=== PATIENT | male | born 1980 | race Caucasian/White ===

== ENCOUNTER 2019-05-02 06:01 | Day surgery (SDC) | payer BC ==
[~2019-05-02 06:01] MED LIST: Dextrose 5%-0.45% NaCl 1,000 ML IV SCH; Sodium Chloride 0.9% 10 ML Syringe FLUSH PRN
[2019-05-02] MEDS ORDERED: Midazolam 1 MG/ML 2 ML SDV IV ONE ×6 (06:02→07:30)
[2019-05-02] MEDS ORDERED: fentaNYL 100 MCG/2 ML SDV IV ONE ×3 (06:02→07:20)
[2019-05-02] MEDS ORDERED: Midazolam 1 MG/ML 2 ML SDV ONE (06:16)
[2019-05-02] MEDS ORDERED: fentaNYL 100 MCG/2 ML SDV ONE (06:16)
[2019-05-02 07:55] VITALS: BP 155/79; PULSE 91
--- NOTE | 2019-05-02 15:22 | OR ---
DATE: 05/02/2019 PROCEDURES: Total colonoscopy, narrow-band imaging, and multiple pinch biopsies. INSTRUMENT USED: CF-GF704T Olympus video colonoscope. PREMEDICATIONS: Fentanyl 100 mcg intravenous, Versed 4 mg intravenous, nasal O2 cannula. The procedure was done under pulse oximetry, BP recording, and warehouse loader. INDICATION: The patient with chronic diarrhea, rectal bleeding, and iron- deficiency anemia. Colonoscopic examination is done for detection of any polypoid lesions and removal, biopsies to be obtained for microscopic colitis, endoscopic hemostasis therapy if needed. DESCRIPTION OF PROCEDURE: Initial rectal exam was unremarkable. Rigid anoscopy showed distal rectal mucosa with erythema, contact bleeding, and ulcerations. The scope was passed with ease up to the ileocecal area. Photographs were taken of the rectum, descending colon, transverse colon, as well as cecal area showing friability, contact bleeding, ulcerations, and pseudopolyps in the right colon, features consistent with ulcerative colitis. No bleeding was noted from any of the visualized areas at the commencement of the examination. The bowel preparation was found to be adequate, Olympia scale 2 in all the regions. No stricture. No vascular ectasia. No large isolated ulcerations seen. No polyp or tumor mass identified. Probing the proximal sides of folds and flexures using adequate distention and clearing up the stool material, withdrawal of the scope was made. Multiple pinch biopsies were obtained from the cecum, mid transverse colon, mid descending colon, and rectosigmoid, and sent for any evidence of microscopic colitis. No bleeding was noted from any of the visualized areas at the completion of examination. IMPRESSION: Ulcerative colitis. The patient tolerated the procedure well. [facility] /[id number]
== END 2019-05-02 09:42 | disposition home or self-care (01) ==
LOC: DL.ENDO 06:01
PROVIDERS: ATTEND Internal Medicine Gastroenterology
DX: K51.911 Ulcerative colitis, unspecified with rectal bleeding (principal); K52.9 Noninfective gastroenteritis and colitis, unspecified; K62.5 Hemorrhage of anus and rectum; D50.9 Iron deficiency anemia, unspecified; E66.01 Morbid (severe) obesity due to excess calories; Z68.43 Body mass index [BMI] 50.0-59.9, adult
CPT/HCPCS: 45380; J2250; J3010; J7042

== ENCOUNTER 2019-08-28 10:29 | Inpatient (IN) | payer BC ==
--- NOTE | 2019-08-28 10:59 | EDM.PDOC ---
ED HPI GENERAL MEDICAL PROBLEM - General Chief Complaint: Lower Extremity Injury/Pain Stated Complaint: ? Time Seen by Provider: 08/28/19 10:45 Source of Information: Reports: Patient, Provider History Limitations: Reports: No Limitations - History of Present Illness INITIAL COMMENTS - FREE TEXT/NARRATIVE: This 39 yo male patient was sent to the ED due to swelling and redness of his left lower extremity. The patient was seen today in the clinic by Dr. Fuller after being on antibiotics (Bactrim) for the past 4 days with worsening of his erythema. The provider suggested the patient have an ultrasound of his left lower extremity looking for evidence of a blood clot. If the patient does not have a blood clot, the patient may require IV antibiotics and hospitalization for treatment. The patient has a medical history of morbid obesity, ulcerative colitis and cellulitis. The patient has been on Prednisone and Candace for his UC , but may need to switch to Intevia due to insufficient response to the above treatment. The patient initially questioned nursing staff about why the ultrasound test was not ordered by Dr. Fuller. The patient was not given an explanation, but was advised that the appropriate testing would be ordered through the ED. Onset Date: 08/25/19 Duration: Constant, Getting Worse Location: Reports: Lower Extremity, Left Quality: Reports: Ache, Dull, Pressure Severity: Moderate Improves with: Reports: None Worsens with: Reports: None Context: Reports: Other Associated Symptoms: Reports: No Other Symptoms Treatments EMBEDDED ENGINEER: Reports: Other Medication(s) (Bactrim (prescribed on 08/25/19)) Left Lower Leg Pain Score (Numeric/FACES): 7 - Related Data Allergies Allergy/AdvReac Type Severity Reaction Status Date / Time No Known Allergies Allergy Verified 08/28/19 10:37 Home Meds: Home Meds Potassium Chloride [Klor-Con M10] 20 meq PO BID 05/02/19 [History] Adalimumab [Humira] 40 mg SQ .EVERYOTHERWEEK 08/28/19 [History] Ascorbate Calcium [Vitamin C] 500 mg PO DAILY 08/28/19 [History] Famotidine [Pepcid] 20 mg PO DAILY 08/28/19 [History] Ferrous Sulfate 325 mg PO BID 08/28/19 [History] Folic Acid 1 mg PO DAILY 08/28/19 [History] Methotrexate 10 mg PO Q7D 08/28/19 [History] Mupirocin Oint [Bactroban Oint] 1 applic TOP BID 08/28/19 [History] Sulfamethoxazole/Trimethoprim [Bactrim 400-80 MG] 1 each PO BID 08/28/19 [ History] predniSONE [Prednisone] 40 mg PO DAILY 08/28/19 [History] Past Medical History - Past Health History Medical/Surgical History: Denies Medical/Surgical History HEENT History: Reports: Impaired Vision Cardiovascular History: Reports: None Respiratory History: Reports: None Gastrointestinal History: Reports: Chronic Diarrhea, Other (See Below) Other Gastrointestinal History: ulcerative colitis Genitourinary History: Reports: None Musculoskeletal History: Reports: Arthritis Neurological History: Reports: Migraines Psychiatric History: Reports: None Endocrine/Metabolic History: Reports: Obesity/BMI 30+ Other Endocrine/Metabolic History: HX OF THYRIOD ENLARGEMENT Hematologic History: Reports: None Immunologic History: Reports: None Oncologic (Cancer) History: Reports: None Dermatologic History: Reports: Cellulitis - Infectious Disease History Infectious Disease History: Reports: Chicken Pox - Past Surgical History Head Surgeries/Procedures: Reports: None HEENT Surgical History: Reports: None Cardiovascular Surgical History: Reports: None Respiratory Surgical History: Reports: None GI Surgical History: Reports: None Male Surgical History: Reports: Vasectomy Endocrine Surgical History: Reports: None Neurological Surgical History: Reports: None Musculoskeletal Surgical History: Reports: None Oncologic Surgical History: Reports: None Dermatological Surgical History: Reports: None Social & Family History - Tobacco Use Smoking Status *Q: Never Smoker Second Hand Smoke Exposure: No - Caffeine Use Caffeine Use: Reports: Energy Drinks, Soda Other Caffeine Use: ENERGY DRINKS 'EVERY NOW AND THEN'. SODA POP 'I HAVEN'T HAD ANY FOR A MONTH' - Recreational Drug Use Recreational Drug Use: No Review of Systems - Review of Systems Review Of Systems: Comprehensive ROS is negative, except as noted in HPI. ED EXAM, GENERAL - Physical Exam Exam: See Below Exam Limited By: No Limitations General Appearance: Alert, WD/WN, Mild Distress, Obese Eye Exam: Bilateral Eye: EOMI, Normal Inspection, PERRL Ears: Normal External Exam, Normal Canal, Hearing Grossly Normal, Normal TMs Nose: Normal Inspection, Normal Mucosa, No Blood Throat/Mouth: Normal Inspection, Normal Lips, Normal Teeth, Normal Gums, Normal Oropharynx, Normal Voice, No Airway Compromise Head: Atraumatic, Normocephalic Neck: Normal Inspection, Supple, Non-Tender, Full Range of Motion Respiratory/Chest: No Respiratory Distress, Lungs Clear, Normal Breath Sounds, No Accessory Muscle Use, Chest Non-Tender Cardiovascular: Normal Peripheral Pulses, Regular Rate, Rhythm, No Edema, No Gallop, No JVD, No Murmur, No Rub, Other (There were several irrgular beats. Dr. Fuller did do an EKG revealing several PAC's as reported by Dr. Fuller. ) GI/Abdominal: Normal Bowel Sounds, Soft, Non-Tender, No Organomegaly, No Distention, No Abnormal Bruit, No Mass, Other (obese) (Male) Exam: Deferred Rectal (Males) Exam: Deferred Back Exam: Normal Inspection, Full Range of Motion, NT Extremities: Pedal Edema, Leg Pain (erythema left lower extremity), Increased Warmth Neurological: Alert, Oriented, CN II-XII Intact, Normal Cognition, Normal Reflexes, No Motor/Sensory Deficits Psychiatric: Normal Affect, Normal Mood Skin Exam: Erythema (LLE) Lymphatic: No Adenopathy Course - Vital Signs Last Recorded V/S: Last Vital Signs Temp 36.6 C 08/28/19 10:32 Pulse 96 08/28/19 10:32 Resp 18 08/28/19 10:32 BP 144/88 H 08/28/19 10:32 Pulse Ox 100 08/28/19 10:32 - Orders/Labs/Meds Orders: Active Orders 24 hr Category Date Time Status Admission Diagnosis [ADT] Urgent ADT 08/28/19 13:21 Ordered Admission Status [Patient Status] [ADT] Routine ADT 08/28/19 13:21 Ordered CULTURE BLOOD [BC] Stat Lab 08/28/19 13:20 Ordered CULTURE BLOOD [BC] Stat Lab 08/28/19 13:20 Ordered Piperacillin/Tazobactam [Zosyn] 3.375 gm Med 08/28/19 13:20 Ordered Sodium Chloride 0.9% [Normal Saline] 100 ml IV ONETIME Blood Culture x2 Reflex Set [OM.PC] Stat Oth 08/28/19 13:20 Ordered Medication Orders Piperacillin Sod/Tazobactam (Sod 3.375 gm/ Sodium Chloride) 100 mls @ 200 mls/ hr IV ONETIME ONE Stop: 08/28/19 13:49 Meds: Medications Generic Name Dose Route Start Last Admin Trade Name Sera PRN Reason Stop Dose Admin Piperacillin Sod/Tazobactam 100 mls @ 200 mls/hr 08/28/19 13:20 Sod 3.375 gm/ Sodium Chloride IV 08/28/19 13:49 ONETIME ONE Departure - Departure Time of Disposition: 13:23 Disposition: Admitted As Inpatient 65 Condition: Fair Clinical Impression: Cellulitis of left lower extremity - Discharge Information *PRESCRIPTION DRUG MONITORING PROGRAM REVIEWED*: Not Applicable *COPY OF PRESCRIPTION DRUG MONITORING REPORT IN PATIENT RIKY: Not Applicable Care Plan Goals: Discussed the patient's history, examination, [facility] lab results and ultrasound results with Dr. Segura. Dr. Segura accepted the patient for continued evaluation and management as an inpatient at [facility]. Sepsis Event Note - Evaluation Sepsis Screening Result: No Definite Risk - Focused Exam Vital Signs: Vital Signs Temp Pulse Resp BP Pulse Ox 08/28/19 10:32 36.6 C 96 18 144/88 H 100 Date Exam was Performed: 08/28/19 Time Exam was Performed: 13:22 - My Orders Last 24 Hours: My Active Orders 08/28/19 13:20 CULTURE BLOOD [BC] Stat CULTURE BLOOD [BC] Stat Piperacillin/Tazobactam [Zosyn] 3.375 gm Sodium Chloride 0.9% [Normal Saline] 100 ml IV ONETIME Blood Culture x2 Reflex Set [OM.PC] Stat 08/28/19 13:21 Admission Diagnosis [ADT] Urgent Admission Status [Patient Status] [ADT] Routine - Assessment/Plan Last 24 Hours: My Active Orders 08/28/19 13:20 CULTURE BLOOD [BC] Stat CULTURE BLOOD [BC] Stat Piperacillin/Tazobactam [Zosyn] 3.375 gm Sodium Chloride 0.9% [Normal Saline] 100 ml IV ONETIME Blood Culture x2 Reflex Set [OM.PC] Stat 08/28/19 13:21 Admission Diagnosis [ADT] Urgent Admission Status [Patient Status] [ADT] Routine
[2019-08-28] MEDS ORDERED: Lidocaine/EPINEPHrine/Tetracaine Soln 5 ML Each TOP ONE (13:04)
[2019-08-28] MEDS ORDERED: Lidocaine 1% with EPINEPHrine 1:100,000 20 ML MDV INJECT ONE (13:04)
[2019-08-28] MEDS ORDERED: Piperacillin/Tazobactam 3.375 GM in Sodium Chloride 0.9% 100 ML IV ONE (13:20)
[2019-08-28] MEDS ORDERED: Ibuprofen 600 MG Tab PO PRN (14:14)
[2019-08-28] MEDS ORDERED: Ondansetron 4 MG Tab.DIS PO PRN (14:14)
[2019-08-28] MEDS ORDERED: Glucagon,Human Recombinant 1 MG Vial IM PRN (14:14)
[2019-08-28] MEDS ORDERED: Acetaminophen 325 MG Tab PO PRN (14:14)
[2019-08-28] MEDS ORDERED: 50% Dextrose in Water 50 ML Syringe IVPUSH PRN (14:14)
[2019-08-28] MEDS ORDERED: Ondansetron 4 MG/2 ML SDV IVPUSH PRN (14:14)
--- NOTE | 2019-08-28 15:07 | PCM.HP ---
H&P History of Present Illness - General Date of Service: 08/28/19 Admit Problem/Dx: Admission Diagnosis/Problem Admission Diagnosis/Problem Cellulitis Source of Information: Patient, Old Records, Provider History Limitations: Reports: No Limitations - History of Present Illness Initial Comments - Free Text/Narative: Patient is a 39-year-old male with medical history significant for ulcerative colitis, iron deficiency anemia, goiter, recurrent cellulitis, sinusitis, and morbid obesity who was sent to the ED from clinic for concern for DVT of the left lower extremity. Patient reports that he scratched the anterior left lower leg about a week ago. States that he does not recall how he sustained the injury to the lower leg. Reports that since last Sunday, he started having redness of the lower extremity that slowly progressed. States that he was seen in clinic and was started on Bactrim. Reports that redness has persisted and continued to progress. Denies any discharge from the lower extremity. Reports left lower extremity is swollen compared to baseline. Reports that he has been having shortness of breath and nonproductive cough since March. States that he has been told that this is likely related to his anemia and has received 2 iron transfusions for this. Reports chronic diarrhea with intermittent episodes of hematochezia. Denies chest pain, fevers, chills, nausea, vomiting, urea, hematuria, or any other symptoms. Reports that he has not had any recent sick contacts. States that he has been diligent in maintaining social isolation. The clinic today, patient's WBC count was 8.28 with hemoglobin of 9.7 and platelet count of 246. LFTs were fairly normal except for low albumin. CRP was 2.7, decreased from 3.4 on 08/14/2019. The ED, ultrasound of the lower extremity was negative for DVT. Patient is being admitted for IV antibiotics due to failed outpatient treatment with oral antibiotics. Left Lower Leg Pain Score (Numeric/FACES): 7 - Related Data Allergies/Adverse Reactions: Allergies Allergy/AdvReac Type Severity Reaction Status Date / Time No Known Allergies Allergy Verified 08/28/19 10:37 Home Medications: Home Meds Potassium Chloride [Klor-Con M10] 20 meq PO BID 05/02/19 [History] Adalimumab [Humira] 40 mg SQ .EVERYOTHERWEEK 08/28/19 [History] Ascorbate Calcium [Vitamin C] 500 mg PO DAILY 08/28/19 [History] Famotidine [Pepcid] 20 mg PO DAILY 08/28/19 [History] Ferrous Sulfate 325 mg PO BID 08/28/19 [History] Folic Acid 1 mg PO DAILY 08/28/19 [History] Methotrexate 10 mg PO Q7D 08/28/19 [History] Mupirocin Oint [Bactroban Oint] 1 applic TOP BID 08/28/19 [History] Sulfamethoxazole/Trimethoprim [Bactrim 400-80 MG] 1 each PO BID 08/28/19 [ History] predniSONE [Prednisone] 40 mg PO DAILY 08/28/19 [History] Past Medical History - Past Health History Medical/Surgical History: Denies Medical/Surgical History HEENT History: Reports: Impaired Vision Cardiovascular History: Reports: None Respiratory History: Reports: None Gastrointestinal History: Reports: Chronic Diarrhea, Other (See Below) Other Gastrointestinal History: ulcerative colitis Genitourinary History: Reports: None Musculoskeletal History: Reports: Arthritis Neurological History: Reports: Migraines Psychiatric History: Reports: None Endocrine/Metabolic History: Reports: Obesity/BMI 30+ Other Endocrine/Metabolic History: HX OF THYRIOD ENLARGEMENT Hematologic History: Reports: None Immunologic History: Reports: None Oncologic (Cancer) History: Reports: None Dermatologic History: Reports: Cellulitis - Infectious Disease History Infectious Disease History: Reports: Chicken Pox - Past Surgical History Head Surgeries/Procedures: Reports: None HEENT Surgical History: Reports: None Cardiovascular Surgical History: Reports: None Respiratory Surgical History: Reports: None GI Surgical History: Reports: None Male Surgical History: Reports: Vasectomy Endocrine Surgical History: Reports: None Neurological Surgical History: Reports: None Musculoskeletal Surgical History: Reports: None Oncologic Surgical History: Reports: None Dermatological Surgical History: Reports: None Social & Family History - Tobacco Use Smoking Status *Q: Never Smoker Second Hand Smoke Exposure: No - Caffeine Use Caffeine Use: Reports: Energy Drinks, Soda Other Caffeine Use: ENERGY DRINKS 'EVERY NOW AND THEN'. SODA POP 'I HAVEN'T HAD ANY FOR A MONTH' - Recreational Drug Use Recreational Drug Use: No H&P Review of Systems - Review of Systems: Review Of Systems: Comprehensive ROS is negative, except as noted in HPI. Exam - Exam Exam: See Below - Vital Signs Vital Signs: Last Vital Signs Temp 98 F 08/28/19 10:32 Pulse 96 08/28/19 10:32 Resp 18 08/28/19 10:32 BP 144/88 H 08/28/19 10:32 Pulse Ox 100 08/28/19 10:32 Weight: 468 lb - Exam General: Alert, Oriented HEENT: Conjunctiva Clear, Hearing Intact, Mucosa Moist & [place] Neck: Supple, Trachea Midline Lungs: Clear to Auscultation, Normal Respiratory Effort Cardiovascular: Regular Rate, Regular Rhythm GI/Abdominal Exam: Normal Bowel Sounds, Non-Tender, No Distention Extremities: Pedal Edema (3+ pitting edema of the left lower extremity with superimposed cellulitis extending from the ankle to about an inch below the knee. About 3 cm linear healing scratch on the left cabrera. Lympedema of the right lower extremity.) Skin: Other (3+ pitting edema of the left lower extremity with superimposed cellulitis extending from the ankle to about an inch below the knee. About 3 cm linear healing scratch on the left cabrera. ) Neuro Extensive - Mental Status: Alert, Oriented x3, Normal Mood/Affect, Normal Cognition Psychiatric: Alert, Normal Affect, Normal Mood - Patient Data Simon Results Last 24 hrs: Microbiology 08/28/19 13:32 Anaerobic Blood Culture - Final Blood - Venous - Lab Draw 08/28/19 13:32 Anaerobic Blood Culture - Final Blood - Venous - Problem List (1) Obesity due to excess calories SNOMED Code(s): 962383467 ICD Code: E66.09 - OTHER OBESITY DUE TO EXCESS CALORIES Status: Acute Current Visit: Yes (2) Ulcerative colitis SNOMED Code(s): 54299436 ICD Code: K51.90 - ULCERATIVE COLITIS, UNSPECIFIED, WITHOUT COMPLICATIONS Status: Acute Current Visit: Yes (3) Iron deficiency anemia SNOMED Code(s): 48390986 ICD Code: D50.9 - IRON DEFICIENCY ANEMIA, UNSPECIFIED Status: Acute Current Visit: Yes (4) Cellulitis of left lower extremity without foot SNOMED Code(s): 185415956 ICD Code: L03.116 - CELLULITIS OF LEFT LOWER LIMB Status: Acute Current Visit: No Problem List Initiated/Reviewed/Updated: Yes Orders Last 24hrs: Active Orders 24 hr Category Date Time Status Admission Diagnosis [ADT] Urgent ADT 08/28/19 13:21 Ordered Admission Status [Patient Status] [ADT] Routine ADT 08/28/19 13:21 Active Diabetes Education [RC] Click to Edit Care 08/28/19 14:17 Active Height and Weight [RC] UPON Care 08/28/19 14:14 Active Intake and Output [RC] QSHIFT Care 08/28/19 14:20 Active Notify Provider [RC] PRN Care 08/28/19 14:17 Active Oxygen Therapy [RC] PRN Care 08/28/19 14:17 Active Peripheral IV Care [RC] ,21 Care 08/28/19 14:22 Active Up ad Lisa [RC] ASDIRECTED Care 08/28/19 14:14 Active VTE/DVT Education [RC] PER UNIT ROUTINE Care 08/28/19 14:17 Active Vital Signs [RC] 00,04,08,12,16,20 Care 08/28/19 14:17 Active Regular Diet [DIET] Diet 08/28/19 Dinner Active BASIC METABOLIC PANEL,BMP [CHEM] Routine Lab 08/28/19 14:14 Ordered CULTURE BLOOD [BC] Stat Lab 08/28/19 13:32 Results CULTURE BLOOD [BC] Stat Lab 08/28/19 13:32 Results MAGNESIUM [CHEM] Routine Lab 08/28/19 14:14 Ordered PHOSPHORUS [CHEM] Routine Lab 08/28/19 14:14 Ordered Acetaminophen [Tylenol] Med 08/28/19 14:14 Active 650 mg PO Q6H PRN Ascorbic Acid [Vitamin C] Med 08/29/19 09:00 Active 500 mg PO DAILY Dextrose 50% in Water Med 08/28/19 14:14 Active 25 ml IVPUSH ASDIRECTED PRN Docusate Sodium/Sennosides [Senna Plus] Med 08/28/19 14:14 Active 1 tab PO BEDTIME PRN Famotidine [Pepcid] Med 08/29/19 09:00 Active 20 mg PO DAILY Ferrous Sulfate Med 08/28/19 21:00 Active 325 mg PO BID Folic Acid Med 08/29/19 09:00 Active 1 mg PO DAILY Glucagon,Human Recombinant [GlucaGen] Med 08/28/19 14:14 Active 1 mg IM ONETIME PRN Heparin Sodium Med 08/28/19 22:00 Pending 5,000 units SUBCUT Q8HR Ibuprofen [Motrin] Med 08/28/19 14:14 Active 600 mg PO Q6H PRN Mupirocin Oint [Bactroban Oint] Med 08/28/19 21:00 Active 0 gm TOP BID Ondansetron [Zofran ODT] Med 08/28/19 14:14 Active 4 mg PO Q6H PRN Ondansetron [Zofran] Med 08/28/19 14:14 Active 4 mg IVPUSH Q6H PRN Piperacillin/Tazobactam [Zosyn] 3.375 gm Med 08/28/19 20:00 Active Sodium Chloride 0.9% [Normal Saline] 100 ml IV Q6H Potassium Chloride [Klor-Con 10] Med 08/28/19 21:00 Active 20 meq PO BID Sodium Chloride 0.9% [Saline Flush] Med 08/28/19 14:14 Active 10 ml FLUSH ASDIRECTED PRN predniSONE Med 08/29/19 09:00 Active 40 mg PO DAILY Blood Culture x2 Reflex Set [OM.PC] Stat Oth 08/28/19 13:20 Ordered Peripheral IV Insertion Adult [OM.PC] Routine Oth 08/28/19 14:14 Ordered Resuscitation Status Routine Resus Stat 08/28/19 14:14 Ordered Medication Orders Acetaminophen (Tylenol) 650 mg PO Q6H PRN PRN Reason: Pain (Mild 1-3)/fever Ascorbic Acid (Vitamin C) 500 mg PO DAILY [facility] Dextrose/Water (Dextrose 50% In Water) 25 ml IVPUSH ASDIRECTED PRN PRN Reason: Hypoglycemia Famotidine (Pepcid) 20 mg PO DAILY [facility] Ferrous Sulfate (Ferrous Sulfate) 325 mg PO BID [facility] Folic Acid (Folic Acid) 1 mg PO DAILY [facility] Glucagon (Glucagen) 1 mg IM ONETIME PRN PRN Reason: Hypoglycemia Heparin Sodium (Porcine) (Heparin Sodium) 5,000 units SUBCUT Q8HR [facility] Piperacillin Sod/Tazobactam (Sod 3.375 gm/ Sodium Chloride) 100 mls @ 200 mls/ hr IV Q6H [facility] Ibuprofen (Motrin) 600 mg PO Q6H PRN PRN Reason: Pain (mild 1-3) Mupirocin (Bactroban Oint) 0 gm TOP BID [facility] Ondansetron HCl (Zofran Odt) 4 mg PO Q6H PRN PRN Reason: nausea, able to take PO Ondansetron HCl (Zofran) 4 mg IVPUSH Q6H PRN PRN Reason: Nausea/Vomiting Potassium Chloride (Klor-Con 10) 20 meq PO BID [facility] Prednisone (Prednisone) 40 mg PO DAILY [facility] Senna/Docusate Sodium (Senna Plus) 1 tab PO BEDTIME PRN PRN Reason: Constipation Sodium Chloride (Saline Flush) 10 ml FLUSH ASDIRECTED PRN PRN Reason: Keep Vein Open Assessment/Plan Comment:: #Cellulitis of left lower extremity: Failed outpatient antibiotic treatment. Patient reports that he has had about 1 week of redness of the lower left extremity that has been progressively worsening despite being on oral Bactrim and been adherent to medication. Start vancomycin and Zosyn Follow-up on blood cultures Encouraged to elevate lower extremities #Edema of bilateral lower extremities: Worse on the left. IV Lasix Strict I's and O's Encourage ambulation Encourage patient to elevate lower extremities while seated or in bed. #Ulcerative colitis: Follows Dr. Seth giang as outpatient No acute issues On iron deficiency anemia Continue iron supplementation #Morbid obesity: BMI of 60.05 Weight loss counseling DVT prophylaxis: Heparin GI prophylaxis: General diet CODE STATUS: Full code per patient preference.
[2019-08-28 15:42] LABS: ANION GAP 10.5 mEq/L (7-13); CHLORIDE,CL 101 mmol/L (98-107); SODIUM,NA 136 mmol/L (136-145)
[2019-08-28] MEDS: Furosemide 40 MG/4 ML VIAL IVPUSH SCH (15:46)
[2019-08-28] MEDS ORDERED: Piperacillin/Tazobactam 2.25 GM in Sodium Chloride 0.9% 50 ML IV SCH (18:00)
[2019-08-28] MEDS: Piperacillin/Tazobactam 3.375 GM in Sodium Chloride 0.9% 100 ML IV SCH (20:03)
[2019-08-28] MEDS: Mupirocin Oint 22 GM Tube TOP SCH (20:49)
[2019-08-28] MEDS: Phosphorus #1 250 MG Tab PO SCH (20:53)
[2019-08-28] MEDS: Ferrous Sulfate 325 MG Tab PO SCH (20:53)
[2019-08-28] MEDS: Potassium Chloride 10 MEQ Tab.ER PO SCH (20:53)
[2019-08-28] MEDS: Heparin Sodium 5,000 Units/ML Vial SUBCUT SCH ×2 (20:56→22:21)
[2019-08-29] MEDS: Piperacillin/Tazobactam 3.375 GM in Sodium Chloride 0.9% 100 ML IV SCH ×5 (01:34→23:54)
[2019-08-29] MEDS: Heparin Sodium 5,000 Units/ML Vial SUBCUT SCH ×4 (05:36→21:21)
[2019-08-29] MEDS: Furosemide 40 MG/4 ML VIAL IVPUSH SCH (08:03)
[2019-08-29] MEDS: predniSONE 20 MG Tab PO SCH (09:21)
[2019-08-29] MEDS: Folic Acid 1 MG Tab PO SCH (09:22)
[2019-08-29] MEDS: Ascorbic Acid 500 MG Tab PO SCH (09:22)
[2019-08-29] MEDS: Famotidine 20 MG Tab PO SCH (09:22)
[2019-08-29] MEDS: Phosphorus #1 250 MG Tab PO SCH ×3 (09:22→21:23)
[2019-08-29] MEDS: Potassium Chloride 10 MEQ Tab.ER PO SCH ×2 (09:22→18:04)
[2019-08-29] MEDS: Ferrous Sulfate 325 MG Tab PO SCH ×2 (09:22→21:22)
[2019-08-29] MEDS: Mupirocin Oint 22 GM Tube TOP SCH ×2 (09:23→21:20)
[2019-08-29 09:52] LABS: ANION GAP 10.6 mEq/L (7-13); CHLORIDE,CL 100 mmol/L (98-107); SODIUM,NA 137 mmol/L (136-145)
--- NOTE | 2019-08-29 10:07 | PCM.PN ---
- General Info Date of Service: 08/29/19 Admission Dx/Problem (Free Text): Admission Diagnosis/Problem Admission Diagnosis/Problem Cellulitis Subjective Update: No acute events overnight. Reports that redness is slightly improved. States that he has been voiding a lot. Denies chest pains, shortness of breath, fevers , chills, lightheadedness, nausea, vomiting, constipation, dysuria, hematuria, new symptoms. - Patient Data Vitals - Most Recent: Last Vital Signs Temp 98.5 F 08/29/19 08:00 Pulse 90 08/29/19 08:00 Resp 18 08/29/19 08:00 BP 112/61 08/29/19 08:00 Pulse Ox 97 08/29/19 08:00 Weight - Most Recent: 455 lb 6.4 oz I&O - Last 24 Hours: Intake & Output 08/28/19 08/29/19 08/29/19 22:59 06:59 14:59 Intake Total 460 650 860 Balance 460 650 860 Lab Results Last 24 Hours: Laboratory Results - last 24 hr 08/28/19 08/29/19 Range/Units 15:16 09:15 Sodium 136 137 (136-145) mmol/L Potassium 4.5 3.6 (3.5-5.1) mmol/L Chloride 101 100 (98-107) mmol/L Carbon Dioxide 29 30 (21-32) mmol/L Anion Gap 10.5 10.6 (7-13) mEq/L BUN 15 14 (7-18) mg/dL Creatinine 0.92 1.06 (0.70-1.30) mg/dL Est Cr Clr Drug Dosing 124.09 107.70 mL/min Estimated GFR (MDRD) > 60 > 60 Glucose 155 H 120 H (74-99) mg/dL Calcium 8.4 L 8.1 L (8.5-10.1) mg/dL Phosphorus 2.1 L 2.0 L (2.6-4.7) mg/dL Magnesium 2.0 1.9 (1.8-2.4) mg/dL Simon Results Last 24 Hours: Microbiology 08/28/19 13:32 Anaerobic Blood Culture - Final Blood - Venous - Lab Draw 08/28/19 13:32 Anaerobic Blood Culture - Final Blood - Venous Med Orders - Current: Current Medications Acetaminophen (Tylenol) 650 mg PO Q6H PRN PRN Reason: Pain (Mild 1-3)/fever Ascorbic Acid (Vitamin C) 500 mg PO DAILY [facility] Last Admin: 08/29/19 09:22 Dose: 500 mg Dextrose/Water (Dextrose 50% In Water) 25 ml IVPUSH ASDIRECTED PRN PRN Reason: Hypoglycemia Famotidine (Pepcid) 20 mg PO DAILY [facility] Last Admin: 08/29/19 09:22 Dose: 20 mg Ferrous Sulfate (Ferrous Sulfate) 325 mg PO BID [facility] Last Admin: 08/29/19 09:22 Dose: 325 mg Folic Acid (Folic Acid) 1 mg PO DAILY [facility] Last Admin: 08/29/19 09:22 Dose: 1 mg Furosemide (Lasix) 80 mg IVPUSH BIDDIURETIC [facility] Stop: 08/29/19 14:01 Glucagon (Glucagen) 1 mg IM ONETIME PRN PRN Reason: Hypoglycemia Heparin Sodium (Porcine) (Heparin Sodium) 5,000 units SUBCUT Q8HR [facility] Last Admin: 08/29/19 05:36 Dose: 5,000 units Piperacillin Sod/Tazobactam (Sod 3.375 gm/ Sodium Chloride) 100 mls @ 200 mls/ hr IV Q6H [facility] Last Admin: 08/29/19 08:07 Dose: 200 mls/hr Ibuprofen (Motrin) 600 mg PO Q6H PRN PRN Reason: Pain (mild 1-3) Metolazone (Zaroxolyn) 2.5 mg PO ONETIME ONE Stop: 08/29/19 15:31 Mupirocin (Bactroban Oint) 0 gm TOP BID [facility] Last Admin: 08/29/19 09:23 Dose: 1 applic Ondansetron HCl (Zofran Odt) 4 mg PO Q6H PRN PRN Reason: nausea, able to take PO Ondansetron HCl (Zofran) 4 mg IVPUSH Q6H PRN PRN Reason: Nausea/Vomiting Potassium Chloride (Klor-Con 10) 20 meq PO BID [facility] Last Admin: 08/29/19 09:22 Dose: 20 meq Prednisone (Prednisone) 40 mg PO DAILY [facility] Last Admin: 08/29/19 09:21 Dose: 40 mg Senna/Docusate Sodium (Senna Plus) 1 tab PO BEDTIME PRN PRN Reason: Constipation Sodium Chloride (Saline Flush) 10 ml FLUSH ASDIRECTED PRN PRN Reason: Keep Vein Open Sodium Phosphate (Neutra-Phos) 500 mg PO TID [facility] Stop: 08/31/19 09:01 Discontinued Medications Furosemide (Lasix) 60 mg IVPUSH BIDDIURETIC [facility] Stop: 08/29/19 14:01 Last Admin: 08/29/19 08:03 Dose: 60 mg Piperacillin Sod/Tazobactam (Sod 3.375 gm/ Sodium Chloride) 100 mls @ 200 mls/ hr IV ONETIME ONE Stop: 08/28/19 13:49 Last Infusion: 08/28/19 14:21 Dose: Infused Piperacillin Sod/Tazobactam (Sod 2.25 gm/ Sodium Chloride) 50 mls @ 100 mls/hr IV Q6HR [facility] Sodium Phosphate (Neutra-Phos) 250 mg PO BID [facility] Stop: 08/31/19 09:01 Last Admin: 08/29/19 09:22 Dose: 250 mg - Exam General: Alert, Oriented, Cooperative, No Acute Distress HEENT: Pupils Equal, EOMI Neck: Supple Lungs: Clear to Auscultation, Normal Respiratory Effort Cardiovascular: Regular Rate, Regular Rhythm GI/Abdominal Exam: Normal Bowel Sounds, Soft, Non-Tender, No Distention Extremities: Pedal Edema (3+ Edema BLE, worse on left. LLE erythema from ankles to about 4 cm below the knees. ) Skin: Warm Neurological: No New Focal Deficit Psy/Mental Status: Alert, Normal Affect, Normal Mood Sepsis Event Note - Evaluation Sepsis Screening Result: No Definite Risk - Focused Exam Vital Signs: Vital Signs Temp Pulse Resp BP Pulse Ox 08/29/19 08:00 98.5 F 90 18 112/61 97 Date Exam was Performed: 08/29/19 Time Exam was Performed: 10:01 - Problem List & Annotations (1) Obesity due to excess calories SNOMED Code(s): 690257443 Code(s): E66.09 - OTHER OBESITY DUE TO EXCESS CALORIES Status: Acute Current Visit: Yes (2) Ulcerative colitis SNOMED Code(s): 96605388 Code(s): K51.90 - ULCERATIVE COLITIS, UNSPECIFIED, WITHOUT COMPLICATIONS Status: Acute Current Visit: Yes (3) Iron deficiency anemia SNOMED Code(s): 80937094 Code(s): D50.9 - IRON DEFICIENCY ANEMIA, UNSPECIFIED Status: Acute Current Visit: Yes (4) Cellulitis of left lower extremity without foot SNOMED Code(s): 843219708 Code(s): L03.116 - CELLULITIS OF LEFT LOWER LIMB Status: Acute Current Visit: No (5) Hypophosphatemia SNOMED Code(s): 9585921 Code(s): E83.39 - OTHER DISORDERS OF PHOSPHORUS METABOLISM Status: Acute Current Visit: Yes - Problem List Review Problem List Initiated/Reviewed/Updated: Yes - My Orders Last 24 Hours: My Active Orders 08/28/19 14:14 Up ad Lisa [RC] ASDIRECTED Acetaminophen [Tylenol] 650 mg PO Q6H PRN Dextrose 50% in Water 25 ml IVPUSH ASDIRECTED PRN Docusate Sodium/Sennosides [Senna Plus] 1 tab PO BEDTIME PRN Glucagon,Human Recombinant [GlucaGen] 1 mg IM ONETIME PRN Ibuprofen [Motrin] 600 mg PO Q6H PRN Ondansetron [Zofran ODT] 4 mg PO Q6H PRN Ondansetron [Zofran] 4 mg IVPUSH Q6H PRN Sodium Chloride 0.9% [Saline Flush] 10 ml FLUSH ASDIRECTED PRN Peripheral IV Insertion Adult [OM.PC] Routine Resuscitation Status Routine 08/28/19 14:17 Diabetes Education [RC] Click to Edit Notify Provider [RC] PRN Oxygen Therapy [RC] PRN VTE/DVT Education [RC] PER UNIT ROUTINE Vital Signs [RC] 00,04,08,12,16,20 08/28/19 14:20 Intake and Output [RC] QSHIFT 08/28/19 14:22 Peripheral IV Care [RC] 08/28/19 20:00 Piperacillin/Tazobactam [Zosyn] 3.375 gm Sodium Chloride 0.9% [Normal Saline] 100 ml IV Q6H 08/28/19 21:00 Ferrous Sulfate 325 mg PO BID Mupirocin Oint [Bactroban Oint] 0 gm TOP BID Potassium Chloride [Klor-Con 10] 20 meq PO BID 08/28/19 22:00 Heparin Sodium 5,000 units SUBCUT Q8HR 08/28/19 Dinner Regular Diet [DIET] 08/29/19 09:00 Ascorbic Acid [Vitamin C] 500 mg PO DAILY Famotidine [Pepcid] 20 mg PO DAILY Folic Acid 1 mg PO DAILY predniSONE 40 mg PO DAILY 08/29/19 13:30 metOLazone [Zaroxolyn] 2.5 mg PO ONETIME ONE 08/29/19 14:00 Furosemide [Lasix] 80 mg IVPUSH BIDDIURETIC Phosphorus #1 [Neutra-Phos] 500 mg PO TID 08/29/19 15:30 metOLazone [Zaroxolyn] 2.5 mg PO ONETIME ONE - Plan Plan:: #Cellulitis of left lower extremity: Slight improvement in redness. Had failed outpatient antibiotic treatment. Patient reports that he has had about 1 week of redness of the lower left extremity that has been progressively worsening despite being on oral Bactrim and been adherent to medication. -Continue vancomycin and Zosyn -Follow-up on blood cultures -Encouraged to elevate lower extremities #Edema of bilateral lower extremities: Worse on the left. -IV Lasix -Strict I's and O's -Encourage ambulation -Encourage patient to elevate lower extremities while seated or in bed. -One-time dose of metolazone -2000 cc daily fluid restrictions #Hypophosphatemia: likely due to diuretics. - Oral phos replacement - Monitor and replace electrolytes. #Ulcerative colitis: Follows Dr. Seth giang as outpatient -No acute issues #Iron deficiency anemia -Continue iron supplementation #Morbid obesity: BMI of 60.05 - Weight loss counseling DVT prophylaxis: Heparin GI prophylaxis: General diet CODE STATUS: Full code per patient preference.
[2019-08-29] MEDS: Sodium Chloride 0.9% 10 ML Syringe FLUSH PRN ×3 (13:09→18:05)
[2019-08-29] MEDS ORDERED: Metolazone 2.5 MG Tab PO ONE ×2 (13:30→15:30)
[2019-08-29] MEDS ORDERED: Furosemide 100 MG/10 ML SDV IVPUSH SCH (14:00)
[2019-08-30] MEDS: Piperacillin/Tazobactam 3.375 GM in Sodium Chloride 0.9% 100 ML IV SCH ×4 (05:42→23:56)
[2019-08-30] MEDS: Heparin Sodium 5,000 Units/ML Vial SUBCUT SCH ×3 (05:45→21:40)
[2019-08-30 07:05] LABS: CHLORIDE,CL 98 mmol/L (98-107); SODIUM,NA 137 mmol/L (136-145)
[2019-08-30] MEDS: Sodium Chloride 0.9% 10 ML Syringe FLUSH PRN ×5 (08:04→23:57)
[2019-08-30] MEDS: Phosphorus #1 250 MG Tab PO SCH ×3 (08:04→21:39)
[2019-08-30] MEDS: Folic Acid 1 MG Tab PO SCH (08:05)
[2019-08-30] MEDS: Ascorbic Acid 500 MG Tab PO SCH (08:05)
[2019-08-30] MEDS: predniSONE 20 MG Tab PO SCH (08:05)
[2019-08-30] MEDS: Potassium Chloride 10 MEQ Tab.ER PO SCH ×4 (08:05→17:53)
[2019-08-30] MEDS: Ferrous Sulfate 325 MG Tab PO SCH ×2 (08:05→21:40)
[2019-08-30] MEDS: Famotidine 20 MG Tab PO SCH (08:05)
[2019-08-30] MEDS: Mupirocin Oint 22 GM Tube TOP SCH ×2 (08:06→21:43)
--- NOTE | 2019-08-30 10:01 | PCM.PN ---
- General Info Date of Service: 08/30/19 Admission Dx/Problem (Free Text): Admission Diagnosis/Problem Admission Diagnosis/Problem Cellulitis Subjective Update: No acute events overnight. Continues to have redness of the left lower extremity. Denies chest pains, shortness of breath, fevers, chills, lightheadedness, nausea, vomiting, constipation, dysuria, hematuria, new symptoms. - Patient Data Vitals - Most Recent: Last Vital Signs Temp 97.4 F 08/30/19 07:56 Pulse 94 08/30/19 07:56 Resp 20 08/30/19 07:56 BP 133/81 08/30/19 07:56 Pulse Ox 100 08/30/19 07:56 Weight - Most Recent: 443 lb 9.6 oz I&O - Last 24 Hours: Intake & Output 08/29/19 08/30/19 08/30/19 22:59 06:59 14:59 Intake Total 540 400 696 Balance 540 400 696 Lab Results Last 24 Hours: Laboratory Results - last 24 hr 08/30/19 08/30/19 Range/Units 05:50 05:50 WBC 10.7 H (5.0-10.0) 10^3/uL RBC 3.39 L (4.6-6.2) 10^6/uL Hgb 9.1 L D (14.0-18.0) g/dL Hct 30.2 L (40.0-54.0) % MCV 89.1 (80-100) fL MCH 26.8 L (27.0-34.0) pg MCHC 30.1 L (33.0-35.0) g/dL Plt Count 308 D (150-450) 10^3/uL Sodium 137 (136-145) mmol/L Potassium 3.0 L (3.5-5.1) mmol/L Chloride 98 (98-107) mmol/L Carbon Dioxide 33 H (21-32) mmol/L Anion Gap 9.0 (7-13) mEq/L BUN 15 (7-18) mg/dL Creatinine 1.12 (0.70-1.30) mg/dL Est Cr Clr Drug Dosing 101.93 mL/min Estimated GFR (MDRD) > 60 BUN/Creatinine Ratio 13.4 (No establ ref range) Glucose 106 H (74-99) mg/dL Calcium 8.3 L (8.5-10.1) mg/dL Phosphorus 3.4 (2.6-4.7) mg/dL Magnesium 2.1 (1.8-2.4) mg/dL Albumin 2.6 L (3.4-5.0) g/dL Simon Results Last 24 Hours: Microbiology 08/28/19 13:32 Aerobic Blood Culture - Preliminary Blood - Venous - Lab Draw NO GROWTH AFTER 1 DAY Anaerobic Blood Culture - Final 08/28/19 13:32 Aerobic Blood Culture - Preliminary Blood - Venous NO GROWTH AFTER 1 DAY Anaerobic Blood Culture - Final Med Orders - Current: Current Medications Acetaminophen (Tylenol) 650 mg PO Q6H PRN PRN Reason: Pain (Mild 1-3)/fever Ascorbic Acid (Vitamin C) 500 mg PO DAILY [facility] Last Admin: 08/30/19 08:05 Dose: 500 mg Dextrose/Water (Dextrose 50% In Water) 25 ml IVPUSH ASDIRECTED PRN PRN Reason: Hypoglycemia Famotidine (Pepcid) 20 mg PO DAILY [facility] Last Admin: 08/30/19 08:05 Dose: 20 mg Ferrous Sulfate (Ferrous Sulfate) 325 mg PO BID [facility] Last Admin: 08/30/19 08:05 Dose: 325 mg Folic Acid (Folic Acid) 1 mg PO DAILY [facility] Last Admin: 08/30/19 08:05 Dose: 1 mg Furosemide (Lasix) 80 mg IVPUSH NOW ONE Stop: 08/30/19 10:46 Glucagon (Glucagen) 1 mg IM ONETIME PRN PRN Reason: Hypoglycemia Heparin Sodium (Porcine) (Heparin Sodium) 5,000 units SUBCUT Q8HR [facility] Last Admin: 08/30/19 05:45 Dose: 5,000 units Piperacillin Sod/Tazobactam (Sod 3.375 gm/ Sodium Chloride) 100 mls @ 200 mls/ hr IV Q6HR [facility] Last Admin: 08/30/19 05:42 Dose: 200 mls/hr Ibuprofen (Motrin) 600 mg PO Q6H PRN PRN Reason: Pain (mild 1-3) Metolazone (Zaroxolyn) 2.5 mg PO ONETIME ONE Stop: 08/30/19 10:16 Mupirocin (Bactroban Oint) 0 gm TOP BID [facility] Last Admin: 08/30/19 08:06 Dose: 1 applic Ondansetron HCl (Zofran Odt) 4 mg PO Q6H PRN PRN Reason: nausea, able to take PO Ondansetron HCl (Zofran) 4 mg IVPUSH Q6H PRN PRN Reason: Nausea/Vomiting Potassium Chloride (Klor-Con 10) 20 meq PO BIDMEALS [facility] Last Admin: 08/30/19 08:05 Dose: 20 meq Potassium Chloride (Klor-Con 10) 40 meq PO BIDMEALS [facility] Stop: 08/31/19 08:01 Prednisone (Prednisone) 40 mg PO DAILY [facility] Last Admin: 08/30/19 08:05 Dose: 40 mg Senna/Docusate Sodium (Senna Plus) 1 tab PO BEDTIME PRN PRN Reason: Constipation Sodium Chloride (Saline Flush) 10 ml FLUSH ASDIRECTED PRN PRN Reason: Keep Vein Open Last Admin: 08/30/19 08:04 Dose: 10 ml Sodium Phosphate (Neutra-Phos) 500 mg PO TID [facility] Stop: 08/31/19 09:01 Last Admin: 08/30/19 08:04 Dose: 500 mg Discontinued Medications Furosemide (Lasix) 60 mg IVPUSH BIDDIURETIC [facility] Stop: 08/29/19 14:01 Last Admin: 08/29/19 08:03 Dose: 60 mg Furosemide (Lasix) 80 mg IVPUSH BIDDIURETIC [facility] Stop: 08/29/19 14:01 Last Admin: 08/29/19 14:36 Dose: 80 mg Piperacillin Sod/Tazobactam (Sod 3.375 gm/ Sodium Chloride) 100 mls @ 200 mls/ hr IV ONETIME ONE Stop: 08/28/19 13:49 Last Infusion: 08/28/19 14:21 Dose: Infused Piperacillin Sod/Tazobactam (Sod 2.25 gm/ Sodium Chloride) 50 mls @ 100 mls/hr IV Q6HR [facility] Piperacillin Sod/Tazobactam (Sod 3.375 gm/ Sodium Chloride) 100 mls @ 200 mls/ hr IV Q6H [facility] Last Infusion: 08/29/19 08:40 Dose: Infused Metolazone (Zaroxolyn) 2.5 mg PO ONETIME ONE Stop: 08/29/19 15:31 Metolazone (Zaroxolyn) 2.5 mg PO ONETIME ONE Stop: 08/29/19 13:31 Last Admin: 08/29/19 13:46 Dose: 2.5 mg Potassium Chloride (Klor-Con 10) 20 meq PO BID [facility] Last Admin: 08/29/19 09:22 Dose: 20 meq Sodium Phosphate (Neutra-Phos) 250 mg PO BID [facility] Stop: 08/31/19 09:01 Last Admin: 08/29/19 09:22 Dose: 250 mg - Exam General: Alert, Oriented, Cooperative, No Acute Distress HEENT: Pupils Equal, Mucous Membr. Moist/[place] Neck: Supple, Trachea Midline Lungs: Clear to Auscultation, Normal Respiratory Effort Cardiovascular: Regular Rate, Regular Rhythm GI/Abdominal Exam: Normal Bowel Sounds, Soft, Non-Tender, No Distention Extremities: Pedal Edema (3+ Edema BLE, worse on left. LLE erythema from ankles to about 4 cm below the knees.), Redness Skin: Warm, Dry, Intact Neurological: No New Focal Deficit Psy/Mental Status: Alert, Normal Affect, Normal Mood Sepsis Event Note - Evaluation Sepsis Screening Result: No Definite Risk - Focused Exam Vital Signs: Vital Signs Temp Pulse Resp BP Pulse Ox 08/30/19 07:56 97.4 F 94 20 133/81 100 Date Exam was Performed: 08/30/19 Time Exam was Performed: 10:02 - Problem List & Annotations (1) Obesity due to excess calories SNOMED Code(s): 211956815 Code(s): E66.09 - OTHER OBESITY DUE TO EXCESS CALORIES Status: Acute Current Visit: Yes (2) Ulcerative colitis SNOMED Code(s): 09312823 Code(s): K51.90 - ULCERATIVE COLITIS, UNSPECIFIED, WITHOUT COMPLICATIONS Status: Acute Current Visit: Yes (3) Iron deficiency anemia SNOMED Code(s): 91613822 Code(s): D50.9 - IRON DEFICIENCY ANEMIA, UNSPECIFIED Status: Acute Current Visit: Yes (4) Cellulitis of left lower extremity without foot SNOMED Code(s): 527611084 Code(s): L03.116 - CELLULITIS OF LEFT LOWER LIMB Status: Acute Current Visit: No (5) Hypophosphatemia SNOMED Code(s): 7598143 Code(s): E83.39 - OTHER DISORDERS OF PHOSPHORUS METABOLISM Status: Acute Current Visit: Yes - Problem List Review Problem List Initiated/Reviewed/Updated: Yes - My Orders Last 24 Hours: My Active Orders 08/29/19 09:00 Ascorbic Acid [Vitamin C] 500 mg PO DAILY Famotidine [Pepcid] 20 mg PO DAILY Folic Acid 1 mg PO DAILY predniSONE 40 mg PO DAILY 08/29/19 12:00 Piperacillin/Tazobactam [Zosyn] 3.375 gm Sodium Chloride 0.9% [Normal Saline] 100 ml IV Q6HR 08/29/19 14:00 Phosphorus #1 [Neutra-Phos] 500 mg PO TID 08/29/19 18:00 Potassium Chloride [Klor-Con 10] 20 meq PO BIDMEALS 08/30/19 09:32 Potassium Chloride [Klor-Con 10] 40 meq PO BIDMEALS 08/30/19 10:15 metOLazone [Zaroxolyn] 2.5 mg PO ONETIME ONE 08/30/19 10:45 Furosemide [Lasix] 80 mg IVPUSH NOW ONE - Plan Plan:: #Cellulitis of left lower extremity: Slight improvement in redness. Had failed outpatient antibiotic treatment. Patient reports that he has had about 1 week of redness of the lower left extremity that has been progressively worsening despite being on oral Bactrim and been adherent to medication. -Continue vancomycin and Zosyn -Follow-up on blood cultures -Encouraged to elevate lower extremities #Edema of bilateral lower extremities: Worse on the left. Has been diuresing well. -IV Lasix -Strict I's and O's -Encourage ambulation -Encourage patient to elevate lower extremities while seated or in bed. -One-time dose of metolazone -2000 cc daily fluid restrictions #Hypokalemia: K of 3.3. - oral potassium replacement. #Hypophosphatemia: was likely due to diuretics. - Received oral phos replacement - Monitor and replace electrolytes. #Ulcerative colitis: Follows Dr. Seth giang as outpatient -No acute issues #Iron deficiency anemia -Continue iron supplementation #Morbid obesity: BMI of 60.05; down to 57 with diuresis. - Weight loss counseling DVT prophylaxis: Heparin GI prophylaxis: General diet CODE STATUS: Full code per patient preference.
[2019-08-30] MEDS ORDERED: Metolazone 2.5 MG Tab PO ONE (10:15)
[2019-08-30] MEDS ORDERED: Furosemide 40 MG/4 ML VIAL IVPUSH ONE (10:45)
[2019-08-31] MEDS: Piperacillin/Tazobactam 3.375 GM in Sodium Chloride 0.9% 100 ML IV SCH (06:03)
[2019-08-31] MEDS: Heparin Sodium 5,000 Units/ML Vial SUBCUT SCH (06:03)
[2019-08-31 07:36] VITALS: BP 140/76; PULSE 87
[2019-08-31] MEDS: Potassium Chloride 10 MEQ Tab.ER PO SCH ×2 (08:39→08:40)
[2019-08-31] MEDS: predniSONE 20 MG Tab PO SCH (08:40)
[2019-08-31] MEDS: Ferrous Sulfate 325 MG Tab PO SCH (08:40)
[2019-08-31] MEDS: Famotidine 20 MG Tab PO SCH (08:41)
[2019-08-31] MEDS: Folic Acid 1 MG Tab PO SCH (08:41)
[2019-08-31] MEDS: Phosphorus #1 250 MG Tab PO SCH (08:41)
[2019-08-31] MEDS: Ascorbic Acid 500 MG Tab PO SCH (08:42)
[2019-08-31] MEDS: Mupirocin Oint 22 GM Tube TOP SCH (08:42)
[2019-08-31 10:05] LABS: ANION GAP 10.3 mEq/L (7-13); CHLORIDE,CL 96 mmol/L (98-107); SODIUM,NA 137 mmol/L (136-145)
[2019-08-31] MEDS ORDERED: Doxycycline 100 MG Cap PO ONE (10:51)
[2019-08-31] MEDS ORDERED: Amoxicillin 500 MG Cap PO ONE (11:00)
--- NOTE | 2019-08-31 11:01 | PCM.DCSUM1 ---
Discharge Summary - Hospital Course Free Text/Narrative:: Patient is a 39-year-old male with medical history significant for ulcerative colitis, iron deficiency anemia, goiter, recurrent cellulitis, sinusitis, and morbid obesity who was admitted for cellulitis of the left lower extremity after he had failed outpatient antibiotics. He was started on zosyn and vancomycin. He was noted to have 3+ edema of left lower extremity. US doppler was negative for dVT in the ED. He was diuresed with metolazone and lasix. Edema improved. Redness of the left lower extremity improved. Electrolytes were monitored and replaced. Creatinine went up from 0.9 to 1.3. He was discharged to continue amoxicillin and doxycycline. He is to follow up with PCP with repeat BMP. If renal function is improved and back to baseline, he may be started on oral diuretics. Recommend obtaining outpatient echocardiogram. Also needs continued support with lifestyle modification to attain weight loss. HPI Initial Comments: Patient is a 39-year-old male with medical history significant for ulcerative colitis, iron deficiency anemia, goiter, recurrent cellulitis, sinusitis, and morbid obesity who was sent to the ED from clinic for concern for DVT of the left lower extremity. Patient reports that he scratched the anterior left lower leg about a week ago. States that he does not recall how he sustained the injury to the lower leg. Reports that since last Sunday, he started having redness of the lower extremity that slowly progressed. States that he was seen in clinic and was started on Bactrim. Reports that redness has persisted and continued to progress. Denies any discharge from the lower extremity. Reports left lower extremity is swollen compared to baseline. Reports that he has been having shortness of breath and nonproductive cough since March. States that he has been told that this is likely related to his anemia and has received 2 iron transfusions for this. Reports chronic diarrhea with intermittent episodes of hematochezia. Denies chest pain, fevers, chills, nausea, vomiting, urea, hematuria, or any other symptoms. Reports that he has not had any recent sick contacts. States that he has been diligent in maintaining social isolation. The clinic today, patient's WBC count was 8.28 with hemoglobin of 9.7 and platelet count of 246. LFTs were fairly normal except for low albumin. CRP was 2.7, decreased from 3.4 on 08/14/2019. In the ED, ultrasound of the lower extremity was negative for DVT. Patient is being admitted for IV antibiotics due to failed outpatient treatment with oral antibiotics. Diagnosis: Stroke: No - Discharge Data Discharge Date: 08/31/19 Discharge Disposition: Home, Self-Care 01 Condition: Stable - Referral to Home Health Primary Care Physician: Tashia Fuller MD - Discharge Diagnosis/Problem(s) (1) Obesity due to excess calories SNOMED Code(s): 500365708 ICD Code: E66.09 - OTHER OBESITY DUE TO EXCESS CALORIES Status: Acute Current Visit: Yes (2) Ulcerative colitis SNOMED Code(s): 48958183 ICD Code: K51.90 - ULCERATIVE COLITIS, UNSPECIFIED, WITHOUT COMPLICATIONS Status: Acute Current Visit: Yes (3) Iron deficiency anemia SNOMED Code(s): 21914553 ICD Code: D50.9 - IRON DEFICIENCY ANEMIA, UNSPECIFIED Status: Acute Current Visit: Yes (4) Cellulitis of left lower extremity without foot SNOMED Code(s): 385996534 ICD Code: L03.116 - CELLULITIS OF LEFT LOWER LIMB Status: Acute Current Visit: No (5) Hypophosphatemia SNOMED Code(s): 1036950 ICD Code: E83.39 - OTHER DISORDERS OF PHOSPHORUS METABOLISM Status: Acute Current Visit: Yes - Discharge Plan *PRESCRIPTION DRUG MONITORING PROGRAM REVIEWED*: Not Applicable *COPY OF PRESCRIPTION DRUG MONITORING REPORT IN PATIENT RIKY: Not Applicable Prescriptions/Med Rec: Amoxicillin 875 mg PO BID #14 tablet Doxycycline [Vibramycin] 100 mg PO BID #14 tab Home Medications: Home Meds Potassium Chloride [Klor-Con M10] 20 meq PO BID 05/02/19 [History] Adalimumab [Humira] 40 mg SQ .EVERYOTHERWEEK 08/28/19 [History] Ascorbate Calcium [Vitamin C] 500 mg PO DAILY 08/28/19 [History] Famotidine [Pepcid] 20 mg PO DAILY 08/28/19 [History] Ferrous Sulfate 325 mg PO BID 08/28/19 [History] Folic Acid 1 mg PO DAILY 08/28/19 [History] Methotrexate 10 mg PO Q7D 08/28/19 [History] Mupirocin Oint [Bactroban Oint] 1 applic TOP BID 08/28/19 [History] predniSONE [Prednisone] 40 mg PO DAILY 08/28/19 [History] Amoxicillin 875 mg PO BID #14 tablet 08/31/19 [Rx] Doxycycline [Vibramycin] 100 mg PO BID #14 tab 08/31/19 [Rx] Patient Handouts: Cellulitis, Adult, [id number] Referrals: Kate Fuller MD [Primary Care Provider] - - Discharge Summary/Plan Comment DC Time >30 min.: Yes - General Info Date of Service: 08/31/19 Admission Dx/Problem (Free Text: Admission Diagnosis/Problem Admission Diagnosis/Problem Cellulitis Subjective Update: No acute events overnight. Redness of the left lower extremity significantly improved. Denies chest pains, shortness of breath, fevers, chills, lightheadedness, nausea, vomiting, constipation, dysuria, hematuria, new symptoms. - Patient Data Vitals - Most Recent: Last Vital Signs Temp 97.3 F 08/31/19 07:35 Pulse 87 08/31/19 07:35 Resp 18 08/31/19 07:35 BP 140/76 08/31/19 07:35 Pulse Ox 100 08/31/19 07:35 Weight - Most Recent: 438 lb 6.4 oz I&O - Last 24 hours: Intake & Output 08/30/19 08/31/19 08/31/19 22:59 06:59 14:59 Intake Total 1280 198 696 Balance 1280 198 696 Lab Results - Last 24 hrs: Laboratory Results - last 24 hr 08/31/19 Range/Units 09:42 Sodium 137 (136-145) mmol/L Potassium 3.3 L (3.5-5.1) mmol/L Chloride 96 L (98-107) mmol/L Carbon Dioxide 34 H (21-32) mmol/L Anion Gap 10.3 (7-13) mEq/L BUN 16 (7-18) mg/dL Creatinine 1.31 H (0.70-1.30) mg/dL Est Cr Clr Drug Dosing 87.15 mL/min Estimated GFR (MDRD) > 60 Glucose 142 H (74-99) mg/dL Calcium 8.5 (8.5-10.1) mg/dL Phosphorus 3.3 (2.6-4.7) mg/dL Magnesium 2.0 (1.8-2.4) mg/dL [facility] Results - Last 24 hrs: Microbiology 08/28/19 13:32 Aerobic Blood Culture - Preliminary Blood - Venous - Lab Draw NO GROWTH AFTER 2 DAYS Anaerobic Blood Culture - Final 08/28/19 13:32 Aerobic Blood Culture - Preliminary Blood - Venous NO GROWTH AFTER 2 DAYS Anaerobic Blood Culture - Final Med Orders - Current: Current Medications Acetaminophen (Tylenol) 650 mg PO Q6H PRN PRN Reason: Pain (Mild 1-3)/fever Amoxicillin (Amoxil) 500 mg PO ONETIME ONE Stop: 08/31/19 11:01 Ascorbic Acid (Vitamin C) 500 mg PO DAILY [facility] Last Admin: 08/31/19 08:42 Dose: 500 mg Dextrose/Water (Dextrose 50% In Water) 25 ml IVPUSH ASDIRECTED PRN PRN Reason: Hypoglycemia Doxycycline Hyclate (Vibramycin) 100 mg PO ONETIME ONE Stop: 08/31/19 10:52 Famotidine (Pepcid) 20 mg PO DAILY [facility] Last Admin: 08/31/19 08:41 Dose: 20 mg Ferrous Sulfate (Ferrous Sulfate) 325 mg PO BID [facility] Last Admin: 08/31/19 08:40 Dose: 325 mg Folic Acid (Folic Acid) 1 mg PO DAILY [facility] Last Admin: 08/31/19 08:41 Dose: 1 mg Glucagon (Glucagen) 1 mg IM ONETIME PRN PRN Reason: Hypoglycemia Heparin Sodium (Porcine) (Heparin Sodium) 5,000 units SUBCUT Q8HR [facility] Last Admin: 08/31/19 06:03 Dose: 5,000 units Ibuprofen (Motrin) 600 mg PO Q6H PRN PRN Reason: Pain (mild 1-3) Mupirocin (Bactroban Oint) 0 gm TOP BID [facility] Last Admin: 08/31/19 08:42 Dose: 1 applic Ondansetron HCl (Zofran Odt) 4 mg PO Q6H PRN PRN Reason: nausea, able to take PO Ondansetron HCl (Zofran) 4 mg IVPUSH Q6H PRN PRN Reason: Nausea/Vomiting Potassium Chloride (Klor-Con 10) 20 meq PO BIDMEALS [facility] Last Admin: 08/31/19 08:39 Dose: 20 meq Prednisone (Prednisone) 40 mg PO DAILY [facility] Last Admin: 08/31/19 08:40 Dose: 40 mg Senna/Docusate Sodium (Senna Plus) 1 tab PO BEDTIME PRN PRN Reason: Constipation Sodium Chloride (Saline Flush) 10 ml FLUSH ASDIRECTED PRN PRN Reason: Keep Vein Open Last Admin: 08/30/19 23:57 Dose: 10 ml Discontinued Medications Furosemide (Lasix) 60 mg IVPUSH BIDDIURETIC MAXIMUS Stop: 08/29/19 14:01 Last Admin: 08/29/19 08:03 Dose: 60 mg Furosemide (Lasix) 80 mg IVPUSH BIDDIURETIC MAXIMUS Stop: 08/29/19 14:01 Last Admin: 08/29/19 14:36 Dose: 80 mg Furosemide (Lasix) 80 mg IVPUSH NOW ONE Stop: 08/30/19 10:46 Last Admin: 08/30/19 10:46 Dose: 80 mg Piperacillin Sod/Tazobactam (Sod 3.375 gm/ Sodium Chloride) 100 mls @ 200 mls/ hr IV ONETIME ONE Stop: 08/28/19 13:49 Last Infusion: 08/28/19 14:21 Dose: Infused Piperacillin Sod/Tazobactam (Sod 2.25 gm/ Sodium Chloride) 50 mls @ 100 mls/hr IV Q6HR MAXIMUS Piperacillin Sod/Tazobactam (Sod 3.375 gm/ Sodium Chloride) 100 mls @ 200 mls/ hr IV Q6H [facility] Last Infusion: 08/29/19 08:40 Dose: Infused Piperacillin Sod/Tazobactam (Sod 3.375 gm/ Sodium Chloride) 100 mls @ 200 mls/ hr IV Q6HR [facility] Last Admin: 08/31/19 06:03 Dose: 200 mls/hr Metolazone (Zaroxolyn) 2.5 mg PO ONETIME ONE Stop: 08/29/19 15:31 Metolazone (Zaroxolyn) 2.5 mg PO ONETIME ONE Stop: 08/29/19 13:31 Last Admin: 08/29/19 13:46 Dose: 2.5 mg Metolazone (Zaroxolyn) 2.5 mg PO ONETIME ONE Stop: 08/30/19 10:16 Last Admin: 08/30/19 10:12 Dose: 2.5 mg Potassium Chloride (Klor-Con 10) 20 meq PO BID [facility] Last Admin: 08/29/19 09:22 Dose: 20 meq Potassium Chloride (Klor-Con 10) 40 meq PO BIDMEALS [facility] Stop: 08/31/19 08:01 Last Admin: 08/31/19 08:40 Dose: 40 meq Sodium Phosphate (Neutra-Phos) 250 mg PO BID [facility] Stop: 08/31/19 09:01 Last Admin: 08/29/19 09:22 Dose: 250 mg Sodium Phosphate (Neutra-Phos) 500 mg PO TID [facility] Stop: 08/31/19 09:01 Last Admin: 08/31/19 08:41 Dose: 500 mg - Exam General: Reports: Alert, Oriented HEENT: Reports: Pupils Equal, Mucous Membr. Moist/[place] Neck: Reports: Supple, Trachea Midline Lungs: Reports: Clear to Auscultation, Normal Respiratory Effort Cardiovascular: Reports: Regular Rate, Regular Rhythm, No Murmurs GI/Abdominal Exam: Normal Bowel Sounds, Soft, Non-Tender, No Distention Extremities: Pedal Edema (Edema improved significantly, with skin mottling. ), Redness (Redness improved significantly) Skin: Reports: Warm, Dry, Intact Neurological: Reports: No New Focal Deficit Psy/Mental Status: Reports: Alert, Normal Affect, Normal Mood
== END 2019-08-31 11:23 | disposition home or self-care (01) | DRG 383 ==
LOC: DL.ED 10:29 → DL.MS 13:21
PROVIDERS: ADMIT Internal Medicine; ATTEND Internal Medicine
PROC: 30233N1 Transfusion of Nonautologous Red Blood Cells into Peripheral Vein, Percutaneous Approach (ICD-10-PCS; principal; 2019-08-28)
DX: L03.116 Cellulitis of left lower limb (principal); E66.01 Morbid (severe) obesity due to excess calories; D50.9 Iron deficiency anemia, unspecified; E04.9 Nontoxic goiter, unspecified; J32.9 Chronic sinusitis, unspecified; K51.90 Ulcerative colitis, unspecified, without complications; E83.39 Other disorders of phosphorus metabolism; H54.7 Unspecified visual loss; K52.9 Noninfective gastroenteritis and colitis, unspecified; G43.909 Migraine, unspecified, not intractable, without status migrainosus; M19.90 Unspecified osteoarthritis, unspecified site; R60.0 Localized edema; E87.6 Hypokalemia; Z79.52 Long term (current) use of systemic steroids; Z79.899 Other long term (current) drug therapy; Z98.52 Vasectomy status; Z68.44 Body mass index [BMI] 60.0-69.9, adult
CPT/HCPCS: 36415; 80048; 80069; 83735; 84100; 85027; 87040; 93971; 99284; A9270-GY; J1644; J1940; J2543; J7050; J7512

== ENCOUNTER 2019-10-18 00:34 | Emergency (ER) | payer BC ==
[2019-10-18] MEDS ORDERED: EPINEPHrine 1:10,000 1 MG/10 ML Syringe IOSS ONE ×2 (00:39→00:43)
[2019-10-18] MEDS ORDERED: EPINEPHrine 1:10,000 1 MG/10 ML Syringe IV ONE (00:51)
[2019-10-18 01:27] LABS: ANION GAP 30.6 mEq/L (7-13); CHLORIDE,CL 104 mmol/L (98-107); SODIUM,NA 142 mmol/L (136-145)
[2019-10-18 01:47] LABS: PTT,PARTIAL THROMBOPLSTIN TIME 108.9 SEC (22.0-34.0)
[2019-10-18] MEDS ORDERED: EPINEPHrine 1:10,000 1 MG/10 ML Syringe ONE (03:35)
--- NOTE | 2019-10-18 06:15 | EDM.PDOC ---
ED HPI GENERAL MEDICAL PROBLEM - General Chief Complaint: CPR in Progress Stated Complaint: AMBULANCE Time Seen by Provider: 10/18/19 00:34 Source of Information: Reports: EMS, Family History Limitations: Reports: Altered Mental Status - History of Present Illness INITIAL COMMENTS - FREE TEXT/NARRATIVE: ED via [facility] with CPR in progress, patient reported by to have had diff iculty breathing all day. Went to bathroom and told to call 911, reported to EMS that he had been Ha[place] abdominal pain. Mother reported that she had talked to him earlier today and said he wasn't feeling well . stated he "collapsed" while on toilet and was slumped forward and she couldn't fell a pulse, tried to do cpr but size limited ability to move patient. EMS report finding him face down on floor with large amount of bright red blood in toilet with large clots. Patient hx of ulcerative colitis. No known history of [place] , asthma DM or CHF. Has not had any recent fevers. No cough. No vomiting today. Estimated down time 0005. IO to left shoulder Treatments TRUER PINION AND WHEEL: Reports: CPR, Intubation, IV/IO Other Treatments TRUER PINION AND WHEEL: 3 epi, defibrillation ED ROS GENERAL - Review of Systems Review Of Systems: Comprehensive ROS is negative, except as noted in HPI. ED EXAM, CPR - Physical Exam Exam: See Below Limited By: No Limitations General Appearance: Obese, Other (pale, cool light mottling extremities) Eye Exam: Bilateral Eye: Other (fixed dilated) Ears: Normal External Exam Nose: No Blood Head: Atraumatic, Normocephalic Respiratory Chest: Other (ET tube in palce assissted breathing Bag valve) Cardiovascular: Absent Heart Sounds, Pulse with Compression, CPR In Progress, Other (PEA on arrival. ) Neurological: Unresponsive Skin Exam: Cool, Mottled, Pallor Course - Orders/Labs/Meds Labs: Laboratory Tests 10/18/19 10/18/19 10/18/19 Range/Units 00:55 00:55 00:55 WBC 23.4 H (5.0-10.0) 10^3/uL RBC 3.44 L (4.6-6.2) 10^6/uL Hgb 9.6 L (14.0-18.0) g/dL Hct 33.7 L (40.0-54.0) % MCV 98.0 (80-100) fL MCH 27.9 (27.0-34.0) pg MCHC 28.5 L (33.0-35.0) g/dL Plt Count 44 L* (150-450) 10^3/uL Neut % (Auto) 44.2 (42.2-75.2) % Lymph % (Auto) 45.8 (20.5-50.1) % [place] % (Auto) 9.4 H (2-8) % Eos % (Auto) 0.4 L (1.0-3.0) % Baso % (Auto) 0.2 (0.0-1.0) % PT 18.6 H (9.0-12.0) SEC INR 2.0 H (0.9-1.2) APTT 108.9 H* (22.0-34.0) SEC Sodium 142 (136-145) mmol/L Potassium 5.6 H (3.5-5.1) mmol/L Chloride 104 (98-107) mmol/L Carbon Dioxide 13 L (21-32) mmol/L Anion Gap 30.6 H (7-13) mEq/L BUN 10 (7-18) mg/dL Creatinine 1.73 H (0.70-1.30) mg/dL Est Cr Clr Drug Dosing TNP Estimated GFR (MDRD) 44 BUN/Creatinine Ratio 5.8 (No establ ref range) Glucose 384 H (74-99) mg/dL Calcium 8.9 (8.5-10.1) mg/dL Total Bilirubin 0.2 (0.2-1.0) mg/dL AST 60 H (15-37) U/L ALT 54 (16-63) U/L Alkaline Phosphatase 100 (46-116) U/L Troponin I 0.482 H* (0.000-0.056) ng/mL Total Protein 5.4 L (6.4-8.2) g/dL Albumin 1.9 L (3.4-5.0) g/dL Globulin 3.5 Albumin/Globulin Ratio 0.54 TSH, Ultra Sensitive 2.07 (0.36-3.74) uIU/mL Meds: Medications Discontinued Medications Generic Name Dose Route Start Last Admin Trade Name Freq PRN Reason Stop Dose Admin Epinephrine HCl Confirm 10/18/19 03:35 Epinephrine 1:10,000 Administered 10/18/19 03:36 Dose 4 mg .ROUTE .STK-MED ONE - Re-Assessments/Exams Free Text/Narrative Re-Assessment/Exam: 10/18/19 06:19 here. History vague. Telephone conversation with mother, appraised of situation. Mother states patient has no known living will, no formal discussions but believes patient would not want extensive measures. Departure - Departure Time of Disposition: 03:25 Disposition: 20 Clinical Impression: Cardiac arrest - Discharge Information *PRESCRIPTION DRUG MONITORING PROGRAM REVIEWED*: No *COPY OF PRESCRIPTION DRUG MONITORING REPORT IN PATIENT RIKY: No Referrals: Boo Rivas MD [Primary Care Provider] - Forms: ED Department Discharge
== END 2019-10-18 08:20 | disposition expired ==
LOC: DL.ED 01:30 → MERGE 01:30 → DL.ED 08:20
DX: I46.9 Cardiac arrest, cause unspecified (principal)
CPT/HCPCS: 36415; 80053; 84443; 84484; 85025; 85610; 85730; 92950; 99285; J0171